=== PATIENT | male | born 1940 | race Caucasian/White ===

== ENCOUNTER 2024-03-06 14:16 | Emergency (ER) | payer MEDICARE, OTHER ==
[~2024-03-06] VITALS: Ht 185.4 cm; Wt 78.8 kg
[2024-03-06] MEDS ORDERED: FLOMAX0.4 MG PO (14:52)
[2024-03-06] MEDS ORDERED: LEVOTHYROXINE100 MC2 PO (14:52)
[2024-03-06 15:00] LABS: MCH 30.8 (27-36); RDW 14.9 (10.5-15.0)
[2024-03-06 15:03] LABS: EOSINOPHILS 6.6 % (0-6); HEMATOCRIT 40.7 % (35.0-50.0); HEMOGLOBIN 13.6 g/dL (12.0-18.0); LYMPHOCYTES 40.1 % (24-44); MCHC 33.4 g/dl (30-36); MCV 92.1 fl (81-99); MONOCYTES 6.9 % (0-12); NEUTROPHILS 45.4 % (39-80); PLATELET COUNT 187 K/uL (140-440); RBC 4.41 M/ul (4.3-5.7)
[2024-03-06 15:07] LABS: INR 1.05 (0.80-1.30); PROTIME 13.3 Sec (11.2-14.2)
[2024-03-06 15:09] LABS: PARTIAL THROMBOPLASTIN TIME 23.7 Sec (22.9-41.3)
[2024-03-06 15:15] LABS: ALBUMIN 3.5 g/dL (3.4-5.0); ALBUMIN/GLOBULIN RATIO 0.92 (1.1-2.4); ANION GAP 11.6 (7-21); BILIRUBIN, TOTAL 0.4 ng/dL (0.2-1.0); BUN/CREATININE RATIO 13.86 (6.0-28.6); CALCIUM 8.6 mg/dL (8.5-10.1); CREATININE, SERUM 1.01 mg/dL (0.70-1.30); POTASSIUM 3.6 mmol/L (3.5-5.1); PROTEIN, TOTAL 7.3 g/dL (6.4-8.2)
[2024-03-06] MEDS ORDERED: ondansetron HCL 4 MG/2 ML VIAL IV ONE (15:30)
[2024-03-06 18:30] VITALS: BP 144/83
--- NOTE | 2024-03-07 22:16 | EKG ---
[facility] [address] [facility] [place] [address] Signed Sinus bradycardia Otherwise normal ECG No previous ECGs available Confirmed by Maryana Recio MD () on 03/07/2024 10:16:21 PM Electronically Signed By: MARYANA RECIO MD 03/07/24 2216 PATIENT NAME: JAKE METCALF Electrocardiogram DATE OF : 36 PHYSICIAN: MARYANA RECIO MD REPORT #: [id number] REPORT IS CONFIDENTIAL AND NOT TO BE RELEASED WITHOUT AUTHORIZATION
== END 2024-03-06 18:30 | disposition home or self-care (01) ==
LOC: ED 14:16
PROVIDERS: Emergency Medicine
DX: R42 Dizziness and giddiness (principal); E03.9 Hypothyroidism, unspecified; Z79.890 Hormone replacement therapy; Z79.899 Other long term (current) drug therapy; Z88.2 Allergy status to sulfonamides
CPT/HCPCS: 36415; 70496; 70498; 71045; 80053; 84484; 85025; 85610; 85730; 93005; 93010; J2405; Q9967